=== PATIENT | female | born 1955 | race Caucasian/White ===

== ENCOUNTER → 2016-12-09 | Outpatient (CLI) | payer OTHER | LOC: FIMAGING 12:11 | DX: Z12.31 Encounter for screening mammogram for malignant neoplasm of breast (principal) | CPT/HCPCS: G0202 ==

== ENCOUNTER → 2018-01-06 | Outpatient (CLI) | payer OTHER | LOC: FIMAGING 14:23 | PROVIDERS: ATTEND Internal Medicine | DX: Z12.31 Encounter for screening mammogram for malignant neoplasm of breast (principal) ==

== ENCOUNTER → 2018-02-01 | Outpatient (CLI) | payer OTHER | LOC: BMCIMAGING 07:49 | PROVIDERS: ATTEND Nurse Practitioner | DX: B17.9 Acute viral hepatitis, unspecified (principal) ==

== ENCOUNTER → 2018-02-10 | Outpatient (CLI) | payer OTHER ==
[~2018-02-10] MED LIST: IOPAMIDOL (ISOVUE-300) 100 ML BTL ONE
== END ==
LOC: FIMAGING 13:33
PROVIDERS: ATTEND Internal Medicine
DX: K74.60 Unspecified cirrhosis of liver (principal); K74.0 Hepatic fibrosis; K57.90 Diverticulosis of intestine, part unspecified, without perforation or abscess without bleeding; K59.00 Constipation, unspecified
CPT/HCPCS: Q9967

== ENCOUNTER 2018-02-28 08:59 | Outpatient (CLI) | payer OTHER ==
[~2018-02-28 08:59] MED LIST changes: +FLUMAZENIL 0.5 MG/5 ML MDV IVP PRN; -IOPAMIDOL (ISOVUE-300) 100 ML BTL ONE; +MEPERIDINE 25 MG/ML SYR IVP PRN; +MIDAZOLAM 2 MG/2 ML VIAL IVP PRN; +NALOXONE HCL 0.4 MG/ML INJ IVP PRN; +fentaNYL 100 MCG/2 ML INJ IVP PRN
[2018-02-28] MEDS ORDERED: LIDOCAINE 1% 300 MG/30 ML SDV ONE (09:53)
--- NOTE | 2018-02-28 10:37 | PDPROPOC ---
Sedation Plan of Care Sedation Plan of Care: vital signs stable, mental status noted, patient educated of risks, benefits, alternatives, patient can tolerate sedation ASA Classification: ASA 2 Planned drugs: fentanyl, midazolam Mallampati Score: Class 1 Mallampati Reference Image:
--- NOTE | 2018-02-28 10:39 | PDGENHP ---
History & Physical Chief Complaint: elevated LFTs History of Present Illness: 62F with recent fatigue, LE edema and transaminitis. Autoimmune hepatitis suspected. Relevant Physical Exam: NAD, nondistended abdomen. Cardiorespiratory Assessment: RRR, nl wob
[2018-02-28] MEDS ORDERED: ONDANSETRON 4 MG/2 ML VIAL IVP PRN (11:21)
[2018-02-28] MEDS ORDERED: oxyCODONE IR 5 MG TAB PO PRN (11:21)
--- NOTE | 2018-02-28 11:21 | PDRADPN ---
Radiology Procedure Note Date of Procedure: 02/28/18 Radiologist: Deng Peraza Anesthesia: IV Sedation Pre-op Diagnosis: transaminitis Post-op Diagnosis: same Indication: suspected AIH Procedure: US core liver biopsy Finding(s): Three 18G cores specimens obtained from right hepatic lobe via intercostal approach. Inf/Abcess present in the surg proc area at time of surgery?: No EBL: Minimal Complications: none Specimen(s): Three 18G cores in formalin
[2018-02-28 15:48] VITALS: BP 120/70
== END 2018-02-28 15:10 | disposition home or self-care (01) ==
LOC: FIMAGING 08:59
PROVIDERS: ATTEND Internal Medicine
PROC: 0FB13ZX Excision of Right Lobe Liver, Percutaneous Approach, Diagnostic (ICD-10-PCS; principal; 2018-02-28 11:50)
DX: B17.9 Acute viral hepatitis, unspecified (principal); R74.0 Nonspecific elevation of levels of transaminase and lactic acid dehydrogenase [LDH]; R94.5 Abnormal results of liver function studies; K74.0 Hepatic fibrosis; R53.83 Other fatigue; R60.9 Edema, unspecified
CPT/HCPCS: J2250; J2310; J3010

== ENCOUNTER → 2018-03-07 | Outpatient (CLI) | payer OTHER | LOC: FIMAGING 14:31 | PROVIDERS: ATTEND Internal Medicine | DX: R06.02 Shortness of breath (principal); R91.8 Other nonspecific abnormal finding of lung field ==

== ENCOUNTER → 2018-03-08 | Outpatient (CLI) | payer OTHER | LOC: CIMAGING 07:58 | PROVIDERS: ATTEND Internal Medicine | DX: K76.0 Fatty (change of) liver, not elsewhere classified (principal); B17.9 Acute viral hepatitis, unspecified | CPT/HCPCS: 76700-PO ==

== ENCOUNTER → 2018-07-26 | Outpatient (CLI) | payer OTHER | LOC: BMCIMAGING 07:16 | PROVIDERS: ATTEND Internal Medicine | DX: B17.9 Acute viral hepatitis, unspecified (principal) ==

== ENCOUNTER → 2019-01-02 | Outpatient (CLI) | payer OTHER | LOC: FIMAGING 06:51 | PROVIDERS: ATTEND Internal Medicine | DX: R74.0 Nonspecific elevation of levels of transaminase and lactic acid dehydrogenase [LDH] (principal); I70.0 Atherosclerosis of aorta ==

== ENCOUNTER → 2019-01-09 | Outpatient (CLI) | payer OTHER | LOC: FIMAGING 12:48 | PROVIDERS: ATTEND Internal Medicine | DX: Z12.31 Encounter for screening mammogram for malignant neoplasm of breast (principal); M81.0 Age-related osteoporosis without current pathological fracture ==